=== PATIENT | female | born 1960 | race Two or more races ===

== ENCOUNTER → 2017-08-21 | Emergency (ER) | payer OTHER ==
[~2017-08-21] VITALS: Ht 167.6 cm; Wt 81.6 kg
[~2017-08-21] MED LIST: ASPIR 8181 MG PO; ASPIR-LOW81 MG; PHENERGAN25 MG PO; PREVACID30 MG PO
== END | disposition home or self-care (01) ==
LOC: ER 19:32
DX: K21.9 Gastro-esophageal reflux disease without esophagitis (principal)

== ENCOUNTER 2017-08-23 13:11 | Outpatient (CLI) | payer OTHER | END 2017-08-23 15:53 | disposition home or self-care (01) | LOC: LAB 13:11 | DX: J11.2 Influenza due to unidentified influenza virus with gastrointestinal manifestations (principal) ==

== ENCOUNTER 2017-08-23 13:16 | Outpatient (CLI) | payer OTHER | END 2017-08-23 15:53 | disposition home or self-care (01) | LOC: RAD 13:16 | DX: J11.2 Influenza due to unidentified influenza virus with gastrointestinal manifestations (principal) ==

== ENCOUNTER 2017-09-04 13:35 | Outpatient (CLI) | payer OTHER | END 2017-09-04 13:38 | disposition home or self-care (01) | LOC: MAMO-SONO 13:35 | DX: Z12.31 Encounter for screening mammogram for malignant neoplasm of breast (principal); N60.11 Diffuse cystic mastopathy of right breast; N60.12 Diffuse cystic mastopathy of left breast ==

== ENCOUNTER 2017-09-22 13:08 | Outpatient (CLI) | payer OTHER | END 2017-09-22 13:17 | disposition home or self-care (01) | LOC: RAD 501 13:08 | DX: S82.092A Other fracture of left patella, initial encounter for closed fracture (principal); S82.091A Other fracture of right patella, initial encounter for closed fracture ==

== ENCOUNTER 2018-02-28 08:39 | Outpatient (CLI) | payer OTHER | END 2018-02-28 08:43 | disposition home or self-care (01) | LOC: SONOGRAMA 08:39 | DX: R10.31 Right lower quadrant pain (principal); R10.32 Left lower quadrant pain; R10.11 Right upper quadrant pain; R10.12 Left upper quadrant pain ==

== ENCOUNTER 2018-03-16 09:35 | Outpatient (CLI) | payer OTHER ==
[~2018-03-16] VITALS: Ht 167.6 cm; Wt 85.7 kg
== END 2018-03-16 09:50 | disposition home or self-care (01) ==
LOC: OFIC 805 09:35
DX: K11.8 Other diseases of salivary glands (principal); R43.8 Other disturbances of smell and taste; K21.9 Gastro-esophageal reflux disease without esophagitis

== ENCOUNTER 2018-04-09 08:15 | Outpatient (CLI) | payer OTHER | END 2018-04-09 11:26 | disposition home or self-care (01) | LOC: TOM 08:15 | DX: R10.2 Pelvic and perineal pain (principal) ==

== ENCOUNTER 2018-07-27 15:27 | Outpatient (CLI) | payer OTHER | END 2018-07-27 15:46 | disposition home or self-care (01) | LOC: NUCLEAR 15:27 | DX: I70.213 Atherosclerosis of native arteries of extremities with intermittent claudication, bilateral legs (principal); I73.9 Peripheral vascular disease, unspecified ==

== ENCOUNTER 2018-09-04 09:23 | Outpatient (CLI) | payer OTHER | END 2018-09-04 09:36 | disposition home or self-care (01) | LOC: RAD 501 09:23 | DX: J20.8 Acute bronchitis due to other specified organisms (principal) ==

== ENCOUNTER 2018-10-08 10:21 | Outpatient (CLI) | payer OTHER ==
[~2018-10-08] VITALS: Ht 152.4 cm; Wt 83.9 kg
== END 2018-10-08 10:33 | disposition home or self-care (01) ==
LOC: OFIC 805 10:21
DX: R43.9 Unspecified disturbances of smell and taste (principal); K21.0 Gastro-esophageal reflux disease with esophagitis; R22.1 Localized swelling, mass and lump, neck

== ENCOUNTER 2018-10-08 11:53 | Outpatient (CLI) | payer OTHER | END 2018-10-08 14:07 | disposition home or self-care (01) | LOC: SONOGRAMA 11:53 | DX: R22.1 Localized swelling, mass and lump, neck (principal) ==

== ENCOUNTER 2018-11-23 15:01 | Outpatient (CLI) | payer OTHER | END 2018-11-23 15:18 | disposition home or self-care (01) | LOC: SONOGRAMA 15:01 | DX: R22.9 Localized swelling, mass and lump, unspecified (principal) ==

== ENCOUNTER 2018-12-29 09:33 | Outpatient (CLI) | payer OTHER ==
[~2018-12-29] VITALS: Ht 152.4 cm; Wt 83.9 kg
== END 2018-12-29 09:45 | disposition home or self-care (01) ==
LOC: OFIC 805 09:33
DX: R22.1 Localized swelling, mass and lump, neck (principal); K21.0 Gastro-esophageal reflux disease with esophagitis; R43.9 Unspecified disturbances of smell and taste; K21.9 Gastro-esophageal reflux disease without esophagitis; J40 Bronchitis, not specified as acute or chronic

== ENCOUNTER 2019-02-09 12:17 | Outpatient (CLI) | payer OTHER | END 2019-02-09 12:39 | disposition home or self-care (01) | LOC: RAD 12:17 | DX: M25.551 Pain in right hip (principal); M25.552 Pain in left hip; M25.562 Pain in left knee; M79.671 Pain in right foot ==

== ENCOUNTER → 2019-02-22 | Outpatient (CLI) | payer OTHER | END | disposition home or self-care (01) | LOC: TOM 10:23 | DX: R22.0 Localized swelling, mass and lump, head (principal) ==

== ENCOUNTER 2019-05-05 01:46 | Emergency (ER) | payer OTHER ==
[~2019-05-05] VITALS: Ht 167.6 cm; Wt 83.5 kg
[2019-05-05] MEDS ORDERED: SINGULAIR10 MG (01:52)
[2019-05-05] MEDS ORDERED: LEVSIN/SL0.125 MG SL (04:08)
== END 2019-05-05 04:14 | disposition home or self-care (01) ==
LOC: ER 01:46
DX: R10.11 Right upper quadrant pain (principal)

== ENCOUNTER 2019-05-06 22:33 | Emergency (ER) | payer OTHER ==
[~2019-05-06] VITALS: Ht 167.6 cm; Wt 83.5 kg
[~2019-05-06 22:33] MED LIST changes: +LEVSIN/SL0.125 MG SL; +SINGULAIR10 MG
== END 2019-05-07 00:24 | disposition home or self-care (01) ==
LOC: ER 22:33
DX: R10.11 Right upper quadrant pain (principal)

== ENCOUNTER 2019-05-07 07:09 | Outpatient (CLI) | payer OTHER | END 2019-05-07 07:18 | disposition home or self-care (01) | LOC: NUCLEAR 07:09 | DX: R10.11 Right upper quadrant pain (principal) | CPT/HCPCS: 78227; A9537 ==

== ENCOUNTER 2019-05-13 08:34 | Outpatient (CLI) | payer OTHER | END 2019-05-13 08:35 | disposition home or self-care (01) | LOC: LAB 08:34 | DX: K81.1 Chronic cholecystitis (principal) ==

== ENCOUNTER 2019-05-17 06:15 | Day surgery (SDC) | payer OTHER ==
[2019-05-17] MEDS ORDERED: LEVAQUIN750 MG PO (08:34)
[2019-05-17] MEDS ORDERED: ULTRACET PO (08:34)
== END 2019-05-17 13:00 | disposition home or self-care (01) ==
LOC: CIR.AMB 06:15 → SURH 08:13 → CIR.AMB 09:30 → SURH 09:30 → EDSTATUS 09:30 → CIR.AMB 13:00
DX: K82.4 Cholesterolosis of gallbladder (principal)

== ENCOUNTER 2019-05-20 15:48 | Emergency (ER) | payer OTHER ==
[~2019-05-20] VITALS: Ht 167.6 cm; Wt 77.1 kg
[~2019-05-20 15:48] MED LIST changes: +LEVAQUIN750 MG PO; +ULTRACET PO
== END 2019-05-20 18:37 | disposition home or self-care (01) ==
LOC: ER 15:48
DX: G44.209 Tension-type headache, unspecified, not intractable (principal)

== ENCOUNTER 2019-09-09 13:05 | Outpatient (CLI) | payer OTHER | END 2019-09-09 13:07 | disposition home or self-care (01) | LOC: MAMO-SONO 13:05 | DX: N60.11 Diffuse cystic mastopathy of right breast (principal); N60.12 Diffuse cystic mastopathy of left breast; Z12.31 Encounter for screening mammogram for malignant neoplasm of breast; Z87.898 Personal history of other specified conditions ==

== ENCOUNTER 2020-04-12 08:00 | Outpatient (CLI) | payer OTHER | END 2020-04-12 09:00 | disposition home or self-care (01) | LOC: OFIC 805 08:00 | PROVIDERS: ATTEND Otolaryngology | DX: K21.9 Gastro-esophageal reflux disease without esophagitis (principal); M54.2 Cervicalgia ==

== ENCOUNTER 2020-06-30 08:01 | Outpatient (CLI) | payer OTHER | END 2020-06-30 08:09 | disposition home or self-care (01) | LOC: NUCLEAR 08:01 | PROVIDERS: ATTEND Specialist | DX: I24.8 Other forms of acute ischemic heart disease (principal) | CPT/HCPCS: A9500; 93017; 78452 ==

== ENCOUNTER 2020-08-16 12:12 | Outpatient (CLI) | payer OTHER | END 2020-08-16 20:02 | disposition home or self-care (01) | LOC: PPH VACUNA 12:12 | DX: Z23 Encounter for immunization (principal) ==

== ENCOUNTER → 2021-08-05 | Emergency (ER) | payer OTHER ==
[~2021-08-05] VITALS: Ht 167.6 cm; Wt 83.0 kg
== END | disposition home or self-care (01) ==
LOC: ER 16:33
DX: U07.1 COVID-19 (principal)

== ENCOUNTER 2024-07-27 05:50 | Day surgery (SDC) | payer OTHER ==
[2024-07-23 11:53] VITALS: BP 125/68
[~2024-07-27] VITALS: Ht 167.6 cm; Wt 85.7 kg
[~2024-07-27 05:50] MED LIST changes: +DEXILANT60 MG PO; +MICARDIS PO
[2024-07-27] MEDS ORDERED: CLINDAMYCIN PHOSPHATE 900 MG in 0.9 % SODIUM CHLORIDE 100 ML IV ONE (09:15)
[2024-07-27] MEDS ORDERED: BUPIVACAINE HCL 30 ML VIAL IJ ONE (09:15)
[2024-07-27] MEDS ORDERED: ONDANSETRON HCL 2 MG/ML VIAL IV ONE (09:45)
== END 2024-07-27 11:05 | disposition home or self-care (01) ==
LOC: CIR.AMB 05:50
PROVIDERS: ATTEND Orthopaedic Surgery Hand Surgery
DX: M65.311 Trigger thumb, right thumb (principal); Z88.0 Allergy status to penicillin; Z88.2 Allergy status to sulfonamides